=== PATIENT | female | born 1970 | race Caucasian/White ===

== ENCOUNTER 2017-06-26 19:01 | Emergency (ER) | payer MEDICAID ==
[~2017-06-26] VITALS: Ht 149.9 cm; Wt 79.8 kg
[2017-06-26 19:04] VITALS: BP_SYST 164
[2017-06-26] MEDS ORDERED: NACL 0.9% 1,000 ML IV ONE (19:49)
[2017-06-26 19:59] LABS: BLOOD, URINE 3+ (NEGATIVE); CLARITY/URINE HAZY (CLEAR); COLOR,URINE YELLOW (YELLOW); GLUCOSE,URINE NEGATIVE (NEGATIVE); KETONES,URINE NEGATIVE (NEGATIVE); LEUKOCYTE ESTERASE ,URINE NEGATIVE (NEGATIVE); NITRITE, URINE NEGATIVE (NEGATIVE); PH,URINE 5.5 (5.0-8.0); PROTEIN URINE 2+ (NEGATIVE); UROBILINOGEN,URINE 0.2 (0.2-1.0)
[2017-06-26] MEDS ORDERED: KETOROLAC TROMETHAMINE 30 MG VIAL IVP ONE (20:00)
[2017-06-26 20:07] LABS: BILIRUBIN,URINE NEGATIVE (NEGATIVE)
[2017-06-26 20:08] LABS: BACTERIA,URINE MODERATE /HPF (None Seen); MUCUS,URINE None Seen /LPF (None Seen); RBC,URINE 50-80 /HPF (0-3); WBC,URINE 0-3 /HPF (0-3)
[2017-06-26 20:09] LABS: CALCIUM OXALATE CRYSTALS,UR 0-10 /HPF (None Seen)
[2017-06-26 20:11] LABS: BASOPHILS # (AUTO) 0.1 K/uL (0.0-0.2); EOSINOPHILS # (AUTO) 0.2 K/uL (0.0-0.4); EOSINOPHILS % (AUTO) 1.5 % (0.0-4.0); HEMATOCRIT 41.7 % (36-48); HEMOGLOBIN 14.3 g/dL (12.0-16.0); LYMPHOCYTES # (AUTO) 2.3 K/uL (1.0-5.5); MEAN CORPUSCULAR HEMOGLOBIN 29 pg (27-31); MEAN CORPUSCULAR HGB CONC 34 % (32-36); MEAN CORPUSCULAR VOLUME 83 fL (79.0-98.0); MONOCYTES # (AUTO) 0.8 K/uL (0.0-1.0); NEUTROPHILS # (AUTO) 7.9 K/uL (1.8-7.7); NEUTROPHILS % (AUTO) 70.5 % (40.0-70.0); PLATELET COUNT (AUTO) 331 K/uL (130-430); RED BLOOD CELL COUNT(AUTO) 5.01 MIL/uL (4.2-6.2); RED CELL DISTRIBUTION WIDTH 12.6 % (9.0-15.0); WHITE BLOOD COUNT (AUTO) 11.3 K/uL (4.8-10.8)
[2017-06-26 20:17] LABS: CALCIUM 9.4 mg/dL (8.4-11.0); CREATININE 0.69 mg/dL (0.55-1.30); POTASSIUM 3.3 mmol/L (3.5-5.1)
[2017-06-26 20:22] LABS: ALBUMIN 4.3 g/dL (3.4-4.8); TOTAL BILIRUBIN 1.2 mg/dL (0.0-1.0)
[2017-06-26 21:13] VITALS: BP_SYST 150
== END 2017-06-26 21:10 | disposition home or self-care (01) ==
LOC: SED 19:01
DX: N20.1 Calculus of ureter (principal)
CPT/HCPCS: 36415; 74176; 80053; 81000; 85025; 96361; 96374; 99285; J1885; J7030

== ENCOUNTER 2017-07-14 12:29 | Emergency (ER) | payer MEDICAID ==
[~2017-07-14] VITALS: Ht 149.9 cm; Wt 80.3 kg
[2017-07-14 12:30] VITALS: BP_SYST 153
[2017-07-14] MEDS ORDERED: NACL 0.9% 1,000 ML IV ONE (13:08)
[2017-07-14] MEDS ORDERED: KETOROLAC TROMETHAMINE 30 MG VIAL IVP ONE (13:15)
[2017-07-14 13:33] LABS: BASOPHILS # (AUTO) 0.1 K/uL (0.0-0.2); BASOPHILS % (AUTO) 0.7 % (0.0-2.0); EOSINOPHILS # (AUTO) 0.2 K/uL (0.0-0.4); EOSINOPHILS % (AUTO) 1.3 % (0.0-4.0); HEMATOCRIT 40.5 % (36-48); HEMOGLOBIN 14.1 g/dL (12.0-16.0); LYMPHOCYTES # (AUTO) 1.8 K/uL (1.0-5.5); LYMPHOCYTES % (AUTO) 13.9 % (20.5-51.5); MEAN CORPUSCULAR HEMOGLOBIN 29 pg (27-31); MEAN CORPUSCULAR HGB CONC 35 % (32-36); MEAN CORPUSCULAR VOLUME 84 fL (79.0-98.0); MONOCYTES # (AUTO) 0.8 K/uL (0.0-1.0); MONOCYTES % (AUTO) 6.1 % (1.7-9.3); NEUTROPHILS # (AUTO) 9.7 K/uL (1.8-7.7); PLATELET COUNT (AUTO) 324 K/uL (130-430); RED BLOOD CELL COUNT(AUTO) 4.85 MIL/uL (4.2-6.2); RED CELL DISTRIBUTION WIDTH 12.4 % (9.0-15.0); WHITE BLOOD COUNT (AUTO) 12.6 K/uL (4.8-10.8)
[2017-07-14 13:44] LABS: CALCIUM 9.4 mg/dL (8.4-11.0); CREATININE 0.7 mg/dL (0.55-1.30); POTASSIUM 3.2 mmol/L (3.5-5.1)
[2017-07-14 13:48] LABS: ALBUMIN 4.1 g/dL (3.4-4.8); TOTAL BILIRUBIN 1.7 mg/dL (0.0-1.0)
[2017-07-14 14:38] VITALS: BP_SYST 142
== END 2017-07-14 14:38 | disposition home or self-care (01) ==
LOC: SED 12:29
DX: N20.1 Calculus of ureter (principal); R03.0 Elevated blood-pressure reading, without diagnosis of hypertension
CPT/HCPCS: 36415; 74176; 80053; 81025; 85025; 96361; 96374; 99285; J1885; J7030

== ENCOUNTER 2019-07-26 10:47 | Emergency (ER) | payer MEDICAID, OTHER ==
[~2019-07-26] VITALS: Ht 149.9 cm; Wt 81.2 kg
[2019-07-26] MEDS ORDERED: KETOROLAC TROMETHAMINE 30 MG VIAL IM ONE (11:00)
[2019-07-26] MEDS ORDERED: cloNIDine HCL 0.1 MG TABLET PO ONE (11:00)
[2019-07-26 11:01] VITALS: BP_SYST 164
--- NOTE | 2019-07-26 11:02 | NUR ---
Patient to ER bed 5 to gown for evaluation. Side rails up.
--- NOTE | 2019-07-26 11:07 | NUR ---
DANIEL De La Cruz at bedside examining patient.
--- NOTE | 2019-07-26 11:10 | NUR ---
Pt arrives from home w/ c/o pressure on her head. Pt also reports dizziness. Took Daramimine and had some relief. Pt denies N/V or blurry vision
--- NOTE | 2019-07-26 11:15 | NUR ---
Medicated the pt w/ Clonidine and Toradol per MD order. Will reassess
--- NOTE | 2019-07-26 12:17 | NUR ---
Patient given written and verbal discharge instructions and verbalizes understanding. ER MD discussed with patient the results and treatment provided. Patient in stable condition. ID arm band removed. Rx of Ibuprofen and HTCZ given. Patient educated on pain management and to follow up with PMD. Pain Scale 3/10. Opportunity for questions provided and answered. Medication side effect fact sheet provided.
[2019-07-26 12:22] VITALS: BP_SYST 147
== END 2019-07-26 12:16 | disposition home or self-care (01) ==
LOC: SED 10:47
DX: I10 Essential (primary) hypertension (principal); R51 Headache
CPT/HCPCS: 70450; 96372; 99284; J1885

== ENCOUNTER 2020-08-03 19:05 | Emergency (ER) | payer OTHER ==
[~2020-08-03] VITALS: Ht 152.4 cm; Wt 75.7 kg
[2020-08-03 19:20] VITALS: BP_SYST 147
[2020-08-03] MEDS ORDERED: DILTIAZEM HCL 60 MG TABLET PO ONE (19:30)
[2020-08-03] MEDS ORDERED: LORazepam 1 MG TABLET PO ONE (19:30)
[2020-08-03 20:05] LABS: BASOPHILS # (AUTO) 0.1 K/uL (0.0-0.2); BASOPHILS % (AUTO) 0.7 % (0.0-2.0); EOSINOPHILS # (AUTO) 0.3 K/uL (0.0-0.4); EOSINOPHILS % (AUTO) 2.8 % (0.0-4.0); HEMATOCRIT 39.4 % (36-48); HEMOGLOBIN 13.5 g/dL (12.0-16.0); LYMPHOCYTES # (AUTO) 1.9 K/uL (1.0-5.5); LYMPHOCYTES % (AUTO) 18.5 % (20.5-51.5); MEAN CORPUSCULAR HEMOGLOBIN 29 pg (27-31); MEAN CORPUSCULAR HGB CONC 34 % (32-36); MEAN CORPUSCULAR VOLUME 84 fL (79.0-98.0); MONOCYTES # (AUTO) 0.6 K/uL (0.0-1.0); MONOCYTES % (AUTO) 5.5 % (1.7-9.3); NEUTROPHILS # (AUTO) 7.3 K/uL (1.8-7.7); NEUTROPHILS % (AUTO) 72.5 % (40.0-70.0); PLATELET COUNT (AUTO) 329 K/uL (130-430); RED CELL DISTRIBUTION WIDTH 13.9 % (9.0-15.0); WHITE BLOOD COUNT (AUTO) 10.1 K/uL (4.8-10.8)
[2020-08-03 20:16] LABS: CALCIUM 9.4 mg/dL (8.4-11.0); CREATININE 0.63 mg/dL (0.55-1.30)
[2020-08-03 20:20] LABS: PROTHROMBIN TIME 9.8 SECS (9.5-12.5)
[2020-08-03] MEDS ORDERED: POTASSIUM CHLORIDE 20 MEQ/PKT PACKET PO ONE (20:30)
[2020-08-03 20:37] LABS: ALBUMIN 3.9 g/dL (3.4-4.8); THYROID STIMULATING HORMONE 4.32 uIu/mL (0.36-3.74); TOTAL BILIRUBIN 1.2 mg/dL (0.0-1.0)
[2020-08-03 20:46] LABS: BARBITURATE, URINE NEGATIVE (NEG <=200); BENZODIAZEPINE, URINE NEGATIVE (NEG <=150); CANNABINOID, URINE NEGATIVE (NEG <=50); COCAINE, URINE NEGATIVE (NEG <=150); METHAMPHETAMINES SCREEN,URINE NEGATIVE (NEG <=500); OPIATE, URINE NEGATIVE (NEG <=100); PHENCYCLIDINE SCREEN,URINE NEGATIVE (NEG <=25); UR TRICYCLIC ANTIDEPRESSANTS NEGATIVE (NEG <=300); URINE AMPHETAMINE NEGATIVE (NEG <=500); URINE METHADONE NEGATIVE (NEG <=200); URINE OXYCODONE SCREEN NEGATIVE (NEG <=100); URINE PROPOXYPHENE SCREEN NEGATIVE (NEG <=300)
[2020-08-03] MEDS ORDERED: ATEN-41 PO (21:26)
[2020-08-03] MEDS ORDERED: LORA-259 PO (21:26)
[2020-08-03 21:38] VITALS: BP_SYST 118
== END 2020-08-03 21:38 | disposition home or self-care (01) ==
LOC: SED 19:05
DX: R00.2 Palpitations (principal); I10 Essential (primary) hypertension; E11.9 Type 2 diabetes mellitus without complications; Z79.899 Other long term (current) drug therapy
CPT/HCPCS: 36415; 71045; 80053; 80307; 82962; 83880; 84439; 84443; 84484; 85025; 85610-TC; 85730-TC; 93005; 99285

== ENCOUNTER 2020-09-25 15:44 | Emergency (ER) | payer OTHER ==
[~2020-09-25] VITALS: Ht 149.9 cm; Wt 80.7 kg
[~2020-09-25 15:44] MED LIST: ATEN-41 PO; LORA-259 PO
[2020-09-25 15:48] VITALS: BP_SYST 154
[2020-09-25 18:58] LABS: BASOPHILS # (AUTO) 0.1 K/uL (0.0-0.2); BASOPHILS % (AUTO) 0.8 % (0.0-2.0); EOSINOPHILS # (AUTO) 0.3 K/uL (0.0-0.4); EOSINOPHILS % (AUTO) 2.8 % (0.0-4.0); HEMATOCRIT 38.8 % (36-48); HEMOGLOBIN 13.2 g/dL (12.0-16.0); LYMPHOCYTES # (AUTO) 1.8 K/uL (1.0-5.5); LYMPHOCYTES % (AUTO) 18.7 % (20.5-51.5); MEAN CORPUSCULAR HEMOGLOBIN 29 pg (27-31); MEAN CORPUSCULAR HGB CONC 34 % (32-36); MEAN CORPUSCULAR VOLUME 84 fL (79.0-98.0); MONOCYTES # (AUTO) 0.6 K/uL (0.0-1.0); MONOCYTES % (AUTO) 6.1 % (1.7-9.3); NEUTROPHILS % (AUTO) 71.6 % (40.0-70.0); PLATELET COUNT (AUTO) 318 K/uL (130-430); RED CELL DISTRIBUTION WIDTH 13.9 % (9.0-15.0); WHITE BLOOD COUNT (AUTO) 9.7 K/uL (4.8-10.8)
[2020-09-25 19:10] LABS: CALCIUM 9.3 mg/dL (8.4-11.0); CREATININE 0.49 mg/dL (0.55-1.30); POTASSIUM 3.6 mmol/L (3.5-5.1)
[2020-09-25 19:14] LABS: ALBUMIN 3.9 g/dL (3.4-4.8)
[2020-09-25 21:32] VITALS: BP_SYST 128
== END 2020-09-25 21:32 | disposition home or self-care (01) ==
LOC: SED 15:44
DX: R07.89 Other chest pain (principal); I10 Essential (primary) hypertension; E11.9 Type 2 diabetes mellitus without complications; Z79.899 Other long term (current) drug therapy
CPT/HCPCS: 36415; 71045; 80053; 84484; 85025; 93005; 99285

== ENCOUNTER 2022-02-01 14:33 | Emergency (ER) | payer OTHER ==
[~2022-02-01] VITALS: Ht 149.9 cm; Wt 61.2 kg
--- NOTE | 2022-02-01 14:45 | NUR ---
Patient to ER bed TRIAGE to gown for evaluation. Side rails up.
--- NOTE | 2022-02-01 14:46 | NUR ---
ER at bedside examining patient.
--- NOTE | 2022-02-01 14:50 | NUR ---
FOREIGN REMOVED.PT MEDICATED.
--- NOTE | 2022-02-01 15:00 | NUR ---
Patient given written and verbal discharge instructions and verbalizes understanding. ER MD discussed with patient the results and treatment provided. Patient in stable condition. ID arm band removed. Rx of CORTISPORIN given. Patient educated on pain management and to follow up with PMD. Pain Scale 0. Opportunity for questions provided and answered. Medication side effect fact sheet provided.
[2022-02-01] MEDS ORDERED: IBUPROFEN 800 MG TABLET PO ONE (15:45)
[2022-02-01] MEDS ORDERED: CORTEARS EACH EAR (15:45)
== END 2022-02-01 15:00 | disposition home or self-care (01) ==
LOC: SED 14:33
DX: T16.2XXA Foreign body in left ear, initial encounter (principal); E11.9 Type 2 diabetes mellitus without complications; I10 Essential (primary) hypertension; Z79.899 Other long term (current) drug therapy; W45.8XXA Other foreign body or object entering through skin, initial encounter; Y93.89 Activity, other specified; Y92.89 Other specified places as the place of occurrence of the external cause; Y99.8 Other external cause status
CPT/HCPCS: 99284

== ENCOUNTER 2022-04-29 13:30 | Emergency (ER) | payer OTHER ==
[~2022-04-29] VITALS: Ht 149.9 cm; Wt 61.7 kg
[~2022-04-29 13:30] MED LIST changes: +CORTEARS EACH EAR
--- NOTE | 2022-04-29 13:40 | NUR ---
BIB SELF FROM HOME WITH C/O RECTAL PAIN - 12/02 FOR 7 DAYS. PT STATES SHE BLEEDS BAD WHEN SHE HAS A BOWEL MOVEMENT. PT STATES SHE HAS HEMORRHOIDS THAT BLEED AND SWELL UP DURING A BOWEL MOVEMENT. HX - HTN, DM. PT IS AAX04, NAD, VSS, BREATHING EVEN AND UNLABORED ON RA, PT ON SENIOR PORTFOLIO ANALYST SHOW NSR. PT REST ON GURNEY IN HALLWAY. SAFETY PRECAUTIONS AND COMFORT MEASURES IN PLACE. PENDING MD RYAN AND ORDERS.
--- NOTE | 2022-04-29 13:45 | NUR ---
DANIEL Driscoll at bedside examining patient.
[2022-04-29 14:07] VITALS: BP_SYST 124
[2022-04-29 16:20] LABS: CALCIUM 9.3 mg/dL (8.4-11.0); CREATININE 0.54 mg/dL (0.55-1.30)
[2022-04-29 16:21] LABS: BASOPHILS # (AUTO) 0.1 K/uL (0.0-0.2); BASOPHILS % (AUTO) 0.7 % (0.0-2.0); EOSINOPHILS # (AUTO) 0.2 K/uL (0.0-0.4); EOSINOPHILS % (AUTO) 2.4 % (0.0-4.0); HEMATOCRIT 38.7 % (36-48); HEMOGLOBIN 13.1 g/dL (12.0-16.0); LYMPHOCYTES # (AUTO) 1.4 K/uL (1.0-5.5); LYMPHOCYTES % (AUTO) 17.8 % (20.5-51.5); MEAN CORPUSCULAR HEMOGLOBIN 28 pg (27-31); MEAN CORPUSCULAR HGB CONC 34 % (32-36); MEAN CORPUSCULAR VOLUME 84 fL (79.0-98.0); MONOCYTES # (AUTO) 0.6 K/uL (0.0-1.0); MONOCYTES % (AUTO) 7.8 % (1.7-9.3); NEUTROPHILS # (AUTO) 5.7 K/uL (1.8-7.7); NEUTROPHILS % (AUTO) 71.3 % (40.0-70.0); PLATELET COUNT (AUTO) 302 K/uL (130-430); RED BLOOD CELL COUNT(AUTO) 4.64 MIL/uL (4.2-6.2); RED CELL DISTRIBUTION WIDTH 13.3 % (9.0-15.0)
[2022-04-29 16:24] LABS: TOTAL BILIRUBIN 1.1 mg/dL (0.0-1.0)
[2022-04-29] MEDS ORDERED: ACET-2634 PO (17:55)
[2022-04-29] MEDS ORDERED: HYDR30CR79 TP (17:55)
[2022-04-29] MEDS ORDERED: FAMO-132 PO (17:55)
--- NOTE | 2022-04-29 18:05 | NUR ---
PT IS MEDICALLY FOR D/C. D/C INSTRUCTIONS GIVEN TO PT. PT TO FOLLOW-UP WITH PCP WITHIN 1-3 DAYS AND TO RETURN TO ED FOR WORSENING S/S. PT VERBALIZED UNDERSTANDING. PT IS AAOX4, NAD, VSS, WRISTBAND REMOVED. PT AMBULATORY WITH STEADY GAIT. PT LEFT ED WITH ALL BELONGINGS.
[2022-04-29 18:06] VITALS: BP_SYST 132
== END 2022-04-29 18:06 | disposition home or self-care (01) ==
LOC: SED 13:30
DX: K64.4 Residual hemorrhoidal skin tags (principal); K64.8 Other hemorrhoids; K62.5 Hemorrhage of anus and rectum; R10.13 Epigastric pain; R19.7 Diarrhea, unspecified; E11.9 Type 2 diabetes mellitus without complications; I10 Essential (primary) hypertension; Z79.899 Other long term (current) drug therapy
CPT/HCPCS: 36415; 80053; 83690; 85025; 86886; 86900; 86901; 99284